=== PATIENT | female | born 1950 | race Caucasian/White ===

== ENCOUNTER 2020-03-13 21:03 | Emergency (ER) | payer MEDICARE | END 2020-03-13 21:35 | disposition home or self-care (01) | LOC: NAV ERS 21:03 | DX: R50.83 Postvaccination fever (principal); L27.0 Generalized skin eruption due to drugs and medicaments taken internally; R52 Pain, unspecified; T50.B95A Adverse effect of other viral vaccines, initial encounter | CPT/HCPCS: 99282 ==

== ENCOUNTER 2021-11-05 15:19 | Emergency (ER) | payer MEDICARE ==
[2021-11-05] MEDS ORDERED: methylPREDNISolone Sod Succ/PF 125 MG/2 ML VIAL ONE (15:50)
[2021-11-05] MEDS ORDERED: Albuterol Sulfate 2.5 mg/3 ml Neb ONE ×2 (15:50→16:44)
[2021-11-05 15:53] LABS: #Basophils 0.1 thou/uL (0.0-0.2); #Eosinphils 2.1 thou/uL (0.0-0.7); #Lymphocytes 1.6 thou/uL (1.20-3.40); #Monocytes 0.6 thou/uL (0.11-0.59); #Neutrophils 4.3 thou/uL (1.40-6.50); %Basophils 1.6 % (0.0-1.0); %Lymphocytes 18.5 % (21.0-51.0); %Neutrophils 49.3 % (42.0-75.0); Hemoglobin 14.4 g/dL (12.0-16.0); Mean Corpuscular HGB CONC 31.1 g/dL (32.0-36.0); Mean Corpuscular Hemoglobin 29.3 pg (27.0-31.0); Mean Corpuscular Volume 94.1 fL (78.0-98.0); Mean Platelet Volume 7.7 fL (7.4-10.4); Platelet Count 255 thou/uL (130-400); RBC Distribution Width 13.2 % (11.5-14.5); Red Blood Cell (RBC) Count 4.93 mill/uL (4.20-5.40); White Blood Cell (WBC) Count 8.7 thou/uL (4.8-10.8)
[2021-11-05 16:12] LABS: %Eosinophils 23.7 % (0.0-10.0)
[2021-11-05 16:14] LABS: ALT (SGPT) 16 U/L (8-55); AST (SGOT) 13 U/L (5-34); Albumin 4.2 g/dL (3.4-4.8); Alkaline Phosphatase 82 U/L (40-110); Anion Gap 18 mmol/L (10-20); BUN (Urea Nitrogen) 10 mg/dL (9.8-20.1); Bilirubin, Total 0.4 mg/dL (0.2-1.2); CK (CPK) 140 U/L (29-168); Calc. Creatinine Clearance 0 mL/min (70-130); Carbon Dioxide 19 mmol/L (23-31); Chloride 108 mmol/L (98-107); Globulin 2.4 g/dL (2.4-3.5); Glucose 113 mg/dL (80-115); Potassium 4.2 mmol/L (3.5-5.1); Protein, Total 6.6 g/dL (5.8-8.1); Sodium 141 mmol/L (136-145)
[2021-11-05] MEDS ORDERED: Magnesium 2 GM/50 ML BAG (IN WATER) ONE (16:43)
[2021-11-05 17:44] LABS: SARS-CoV-2 NAA Rapid Test Not Detected (NotDetected)
== END 2021-11-05 19:31 | disposition short-term general hospital (02) ==
LOC: NAV ERS 15:19
DX: J98.01 Acute bronchospasm (principal); Z20.822 Contact with and (suspected) exposure to COVID-19
CPT/HCPCS: 71045; 80053; 82550; 83880; 84484; 85025; 93005; 94640; U0002; 96374; 96375; J2930; J3475; J7611; J7620